=== PATIENT | male | born 1995 | race African-American/Black ===

== ENCOUNTER 2016-05-13 15:57 | Emergency (ER) | payer OTHER ==
[~2016-05-13] VITALS: Ht 175.3 cm; Wt 75.0 kg
[~2016-05-13 15:57] MED LIST: DOXY100T PO
[2016-05-13 15:59] VITALS: BP 126/58; PULSE 60; RESP 14; TEMP 98.6; O2SAT 100
[2016-05-13] MEDS ORDERED: IBUP800T23 PO (17:25)
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
== END 2016-05-13 17:43 | disposition home or self-care (01) ==
LOC: NETRI 15:57
DX: S86.811A Strain of other muscle(s) and tendon(s) at lower leg level, right leg, initial encounter (principal); X50.1XXA Overexertion from prolonged static or awkward postures, initial encounter; Y92.003 Bedroom of unspecified non-institutional (private) residence as the place of occurrence of the external cause
CPT/HCPCS: 99283; E0113

== ENCOUNTER 2016-07-12 17:41 | Emergency (ER) | payer OTHER ==
[~2016-07-12 17:41] MED LIST changes: -DOXY100T PO; +IBUP800T23 PO
[2016-07-12 17:44] VITALS: BP 125/86; PULSE 84; RESP 16; TEMP 98.2; O2SAT 99
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
[2016-07-12] MEDS ORDERED: LIDOCAINE HCL 1% 50 ML VIAL INFIL ONE (18:00)
== END 2016-07-12 19:23 | disposition home or self-care (01) ==
LOC: NEPK 17:41
DX: S21.212A Laceration without foreign body of left back wall of thorax without penetration into thoracic cavity, initial encounter (principal); Z87.891 Personal history of nicotine dependence; W45.8XXA Other foreign body or object entering through skin, initial encounter; W22.8XXA Striking against or struck by other objects, initial encounter; Y93.89 Activity, other specified; Y92.9 Unspecified place or not applicable; Y99.8 Other external cause status
CPT/HCPCS: 12002

== ENCOUNTER 2016-07-31 10:36 | Emergency (ER) | payer OTHER ==
[2016-07-31 10:38] VITALS: BP 124/65; PULSE 72; RESP 14; TEMP 98.2; O2SAT 99
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
== END 2016-07-31 11:24 | disposition home or self-care (01) ==
LOC: NEPK 10:36
DX: S41.012D Laceration without foreign body of left shoulder, subsequent encounter (principal); W45.8XXD Other foreign body or object entering through skin, subsequent encounter; Z48.02 Encounter for removal of sutures
CPT/HCPCS: 99281

== ENCOUNTER 2017-02-25 02:25 | Emergency (ER) | payer OTHER ==
[~2017-02-25] VITALS: Ht 172.7 cm; Wt 65.0 kg
[2017-02-25 02:26] VITALS: BP 147/56; PULSE 84; RESP 16; TEMP 98.2; O2SAT 98
[2017-02-25] MEDS ORDERED: NAPROXEN 500 MG TAB PO ONE (03:15)
[2017-02-25] MEDS ORDERED: NAPR500T2 PO (03:18)
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
== END 2017-02-25 03:46 | disposition home or self-care (01) ==
LOC: NEPC 02:25
DX: M25.561 Pain in right knee (principal); K92.1 Melena; Z72.0 Tobacco use
CPT/HCPCS: 99283